=== PATIENT | female | born 1945 | race Caucasian/White ===

== ENCOUNTER 2019-02-26 11:53 | Emergency (ER) | payer MEDICARE, OTHER, SELFPAY ==
[2019-02-26] VITALS (8 sets, daily range): BP systolic 101–116; BP diastolic 44–59; PULSE 64–82; RESP 18–26; TEMP 37.1; O2SAT 54–99; BMI 19.5
--- NOTE | 2019-02-26 12:11 | ED_ITS ---
Entered by Jennifer Pham, acting as scribe for Sanket Petty MD, [facility]PI - SOB/Dyspnea General: Chief Complaint: Shortness of Breath/Dyspnea Stated Complaint: trouble breathing/cough Time Seen by Provider: 02/26/19 12:24 Source: patient and family Mode of arrival: ambulatory Limitations: no limitations History of Present Illness: HPI Narrative: 73 yo Female presents to ED with complaint of shortness of breath. Pt's daughter states that the patient started having shortness of breath yesterday. Pt's daughter states that the patient's oxygen saturations got down into the 70s yesterday so they increased her breathing treatments. Pt's daughter states that the patient got up to the 80's after the breathing treatments. Pt's daughter states that the patient had a right hip replacement on Friday. Pt's daughter states that the patient has also had a cough which she didn't have before the surgery. Per nurse, patient's oxygen was in the 50's on room air when she arrived to the ER. MD elicited complaint: shortness of breath and cough Pertinent past history: COPD Onset (ago): day(s) (yesterday) Context: other (recent surgery) Timing: constant Severity: severe Relieving factors: oxygen Known history of: COPD Associated symptoms: Reports cough; Deny fever(s) Treatment prior to arrival: none Related Data: Home oxygen amount: none Review of Systems General: Reports: 10 or more systems reviewed and unremarkable except in HPI and below Const: Denies: fever Resp: Reports: shortness of breath and non-productive cough PFSH ED PFSH: Statuses (acute, chronic, etc) shown below reflect problem list status as previously entered and may not be historically accurate Medical History (Updated 02/26/19 @ 17:19 by Sanket Petty MD, [facility] COPD (chronic obstructive pulmonary disease) (Acute) Surgical History (Updated 02/26/19 @ 17:19 by Sanket Petty MD, [facility] History of hip replacement (Acute) Social History (Updated 02/26/19 @ 12:22 by Jennifer Pham) Smoking and tobacco status: current every day smoker Physical Exam Const: COMMON NORMALS: average body habitus, oriented x3, no limitations, healthy appearing, alert and well nourished; apparent distress HENMT: COMMON NORMALS: normocephalic HEAD & SCALP: normocephalic Eye: COMMON NORMALS: PERRL, EOMs intact bilaterally, conjunctivae normal, no scleral icterus, no papilledema, normal visual dominguez by confrontation and fundi normal bilaterally CONJUNCTIVA: Yes conjunctivae normal PUPIL: Yes PERRL DIRECT OPHTHALMOSCOPY: Yes no papilledema and Yes fundi normal bilaterally Neck/C-Spine: COMMON NORMALS: full ROM, no lymphadenopathy, supple, no meningeal signs, no JVD, thyroid normal and no carotid bruits THYROID: thyroid normal Chest: COMMONS NORMALS: inspection of chest normal and palpation of chest normal Resp: COMMON NORMALS: no retractions and no use of accessory muscles; negative for clear to auscultation bilaterally AUSCULTATION: not clear to auscultation bilaterally and crackles (more in the left than the right) Laterality: bilateral Cardio: COMMON NORMALS: no JVD, regular rate, regular rhythm, S1 normal heart sound, S2 normal heart sound, no gallops, no clicks, no murmurs, no rub and peripheral pulses 2+ throughout RATE: regular rate RHYTHM: regular rhythm HEART SOUNDS: S1 normal and S2 normal PERIPHERAL PULSES: pulses 2+ throughout GI: COMMON NORMALS: normal to inspection, nondistended, normoactive bowel sounds, soft to palpation, non-tender, no hepatosplenomegaly, no masses and no bruits PALPATION: Yes soft and Yes no hepatosplenomegaly : COMMON NORMALS: Yes no CVA tenderness BLADDER/KIDNEY EXAM: Yes no CVA tenderness Back/Pelvis: COMMON NORMALS: no CVA tenderness Extremity: NARRATIVE EXTREMITY EXAM: warm and swollen 2+ edema on the right Neuro: COMMON NORMALS: oriented x3 SENSORIUM/ORIENTATION: Yes alert MENINGEAL SIGNS: Yes no meningeal signs Skin: COMMON NORMALS: no rashes or lesions noted, no wounds, skin turgor normal, no jaundice, no petechiae and no mottling GENERAL SKIN EXAM: no rashes or lesions noted and turgor normal Course Reevaluation(s): Time: 16:59 Reevaluation #2: Discussed her lab and imaging findings with her. She is currently on 2 L of oxygen via nasal cannula and she is saturating about 97%. Discussed that she has pulmonary embolism, elevated troponins with a delta at that is about 5. Because of all these she is advised to be admitted to the hospital for further evaluation. The patient is however adamantly declining any hospital admission. Her daughter is there and she is unable to convince the mother. The patient will not entertain any discussion that leads to keeping her in the hospital. I will therefore discharge her home on oral anticoagulation even though I strongly advised her to be in the hospital. The patient and her daughter are strongly counseled to return for any changes in her clinical condition or for any concerns. They voiced understanding. Vital Signs: Vital signs: Vital Signs Temperature 98.7 F 02/26/19 12:08 Pulse Rate 65 02/26/19 15:00 Respiratory Rate 25 H 02/26/19 12:52 Blood Pressure 111/59 02/26/19 15:00 Pulse Oximetry 96 02/26/19 15:00 MDM - SOB/Dyspnea MDM Narrative: Medical decision making narrative: 73-year-old female patient who recently had right hip surgery and presented today with severe shortness of breath and hypoxemia. Evaluation in the emergency department is consistent with pulmonary embolism. She also had elevated troponin and BNP. Attempts to admit the patient to the hospital were rejected by the patient. She is alert and oriented and fit to make her medical decision. Because she refused to be admitted we will discharge her home on oral anticoagulation and she is to follow-up with her primary care provider on Friday. Lab Data: Labs: Lab Results 02/26/19 02/26/19 02/26/19 Range/Units 12:19 12:19 12:19 WBC 6.9 (4.0-10.0) 10^3/ uL RBC 3.20 L (4.1-5.3) 10^6/u L Hgb 9.3 L (11.5-15.3) g/dL Hct 29.2 L (37.0-47.0) % MCV 91.3 (81-99) fL MCH 29.1 (28.0-34.0) pg MCHC 31.8 (30.0-36.0) g/dL RDW 14.6 (12.1-15.1) % Plt Count 284 (130-400) 10^3/c mm MPV 10.1 (7.4-10.4) fL Neut % (Auto) 75.6 % Lymph % (Auto) 10.5 % [place] % (Auto) 9.6 % Eos % (Auto) 3.2 % Baso % (Auto) 0.4 % Neut # (Auto) 5.2 (1.8-7.7) 10^3/u L Lymph # (Auto) 0.7 L (0.8-4.8) 10^3/u L [place] # (Auto) 0.7 (0.2-0.9) 10^3/u L Eos # (Auto) 0.2 (0.0-0.8) 10^3/u L Baso # (Auto) 0.0 (0.0-0.1) 10^3/u L Nucleated RBC % (a uto) 0.3 % Nucleated RBCs # 0.0 /100WBC PT (10.5-13.3) SECO NDS INR (0.8-1.2) Specimen Type Sample Site ABG pH (7.35-7.45) ABG pCO2 (35-45) mmHg ABG pO2 (80.0-100.0) mmH g ABG HCO3 (22-26) mmol/L ABG Base Excess (-2.0-2.0) mmol/ L Andrew Test Hematocrit (37-47) % Hgb O2 Saturation (95-100) % O2 Liters/Min % Ad Setter ID Sodium 133 L (136-145) mmol/L Potassium 4.3 (3.5-5.1) mmol/L Chloride 94 L (98-107) mmol/L Carbon Dioxide 28 (22-29) mmol/L Anion Gap 15.3 (5-19) BUN 12 (8-23) mg/dL Creatinine 0.7 (0.5-0.9) mg/dL Glucose 178 H (74-106) mg/dL Calcium 9.4 (8.8-10.2) mg/Dl Total Bilirubin 0.4 (0.15-1.2) mg/dL AST 20 (0-32) U/L ALT 18 (0-33) U/L Alkaline Phosphata se 77 (35-105) IU/L Troponin T Baselin e 49 H (0-10) ng/mL Troponin T 120 Min rosebud (0-10) ng/mL Delta Troponin T (0-10) ABS# NT-Pro-B Natriuret Pep 1863 H (0-125) pg/mL Total Protein 6.1 L (6.6-8.7) g/dL Albumin 3.8 (3.5-5.2) g/dL Globulin 2.3 (1.3-4.6) g/dL 02/26/19 02/26/19 02/26/19 Range/Units 12:19 13:19 14:26 WBC (4.0-10.0) 10^3/ uL RBC (4.1-5.3) 10^6/u L Hgb (11.5-15.3) g/dL Hct (37.0-47.0) % MCV (81-99) fL MCH (28.0-34.0) pg MCHC (30.0-36.0) g/dL RDW (12.1-15.1) % Plt Count (130-400) 10^3/c mm MPV (7.4-10.4) fL Neut % (Auto) % Lymph % (Auto) % [place] % (Auto) % Eos % (Auto) % Baso % (Auto) % Neut # (Auto) (1.8-7.7) 10^3/u L Lymph # (Auto) (0.8-4.8) 10^3/u L [place] # (Auto) (0.2-0.9) 10^3/u L Eos # (Auto) (0.0-0.8) 10^3/u L Baso # (Auto) (0.0-0.1) 10^3/u L Nucleated RBC % (a uto) % Nucleated RBCs # /100WBC PT 12.80 (10.5-13.3) SECO NDS INR 0.94 (0.8-1.2) Specimen Type Arterial Sample Site Radial, left ABG pH 7.38 (7.35-7.45) ABG pCO2 52.2 H (35-45) mmHg ABG pO2 78.2 L (80.0-100.0) mmH g ABG HCO3 31.1 H (22-26) mmol/L ABG Base Excess 5.3 H (-2.0-2.0) mmol/ L Andrew Test Pos Hematocrit 26.2 L (37-47) % Hgb O2 Saturation 92.5 L (95-100) % O2 Liters/Min 3.0 % Ad Setter ID monro Sodium (136-145) mmol/L Potassium (3.5-5.1) mmol/L Chloride (98-107) mmol/L Carbon Dioxide (22-29) mmol/L Anion Gap (5-19) BUN (8-23) mg/dL Creatinine (0.5-0.9) mg/dL Glucose (74-106) mg/dL Calcium (8.8-10.2) mg/Dl Total Bilirubin (0.15-1.2) mg/dL AST (0-32) U/L ALT (0-33) U/L Alkaline Phosphata se (35-105) IU/L Troponin T Baselin e (0-10) ng/mL Troponin T 120 Min rosebud 43.82 H (0-10) ng/mL Delta Troponin T -5.18 L (0-10) ABS# NT-Pro-B Natriuret Pep (0-125) pg/mL Total Protein (6.6-8.7) g/dL Albumin (3.5-5.2) g/dL Globulin (1.3-4.6) g/dL Imaging Data^: CTA Chest: Radiologist's impression: [place] [address] CT Scan Report Signed Patient: Beverley Gonzales LMR#: [id number] : 7Acct:[id number] Age/Sex: 73 / FADM Date: 02/26/19 Loc: ER Attending Dr: Ordering Physician: Sanket Petty [place], [facility] [place] of Service: 02/26/19 Procedure(s): CT angio chest PE protcl [id number] Accession Number(s): [id number] Report Number: [id number] WS: [id number] CTA scan of the chest with IV contrast. Additional two-dimensional coronal and sagittal reconstruction and MIP images was performed. 02/26/2019 Clinical Data: severe hypoxia. Shortness of breath. recent hip replacement Comparison: None. DLP: 564.[address] scans at [facility] use at least one of these dose optimization techniques: automated exposure control; mA and/or kV adjustment per patient size (includes targeted exams where dose is matched to clinical indication); or iterative reconstruction. Findings: The central pulmonary arteries fill normally with no evidence of intermittent luminal filling defects. The small basilar lower lobe arteries show small intraluminal filling defects which are consistent with minimal pulmonary embolic disease. No nodules or masses are seen. There are small bilateral pleural effusions with more on the left than the right. The heart size is normal with no pericardial effusion. The pulmonary arterial system and thoracic aorta demonstrate no abnormalities or dilatations. There is no axillary or significant mediastinal adenopathy. The thyroid gland shows normal enhancement. The trachea bifurcates into the bronchi. The upper abdomen shows no abnormalities. The visualized liver, spleen, pancreas, adrenal glands and superior poles of the kidneys are not remarkable. There are clips in gallbladder fossa from a cholecystectomy. The vertebral bodies of the thoracic and upper lumbar spine show moderate osteoarthritic spurring.. CT/CT angio chest PE protcl [id number] Impression: 1. Small intraluminal filling defects of the peripheral lower lobe arteries consistent with minimal pulmonary embolic disease. 2. Small bilateral pleural effusions with more on the left than the right. 3. The emergency room was contacted at 1420 hours. Dictated By:Monie Regalado MD Signed By:Monie Regalado MDSigned Date/Time:02/26/19 1419 DD/ 1408 EKG Data^: EKG 1: Attestation: I personally reviewed and interpreted this EKG as follows: EKG Interpretation Date: 02/26/19 EKG interpretation time: 12:54 Prior EKG tracings: not available for review Interpretation: Normal sinus rhythm. Heart rate 69. Normal NM intervals No ST changes EKG 2: Interpretation: [address] [address] Electrocardiograph Report Signed Patient: Beverley Gonzales LMR#: [id number] : 7Acct:[id number] Age/Sex: 73 / FADM Date: 02/26/19 Loc: ER Attending Dr: Ordering Physician: Sanket Petty [place], [facility] [place] of Service: 02/26/19 Procedure(s): ECG 12 lead EKG Accession Number(s): [id number] Report Number: [id number] Measurements Intervals [place] Rate: 63 P: 60 NM: 162 QRS: 57 QRSD: 90 T: 66 QT: 389 QTc: 401 SINUS RHYTHM No previous ECG available for comparison Electronically Signed On 02-26-2019 15:08:56 BED WORKER by Edwige Adams M.D. [email or web address] Dictated By:Edwige Adams MD Signed By:Edwige Adamsigned Date/Time:02/26/19 1509 Discharge Plan Discharge Patient Disposition: Home, Self-Care Clinical Impression: Pleural effusion Pulmonary embolism Qualifiers: Pulmonary embolism type: unspecified Chronicity: acute Acute cor pulmonale presence: unspecified Qualified Code(s): I26.99 - Other pulmonary embolism without acute cor pulmonale History of hip replacement Qualifiers: Laterality: right Qualified Code(s): Z96.641 - Presence of right artificial hip joint Condition: Serious Prescriptions: New apixaban 5 mg tablet See Rx Instructions .ROUTE .COMPLEX Qty: 60 RF: 0 Continued gabapentin 600 mg Tablet 600 mg PO BEDTIME RF: 0 ipratropium-albuterol 0.5 mg-3 mg(2.5 mg base)/3 mL Solution For Nebulization 3 ml INHALATION Q6H PRN (Reason: Shortness Of Breath) RF: 0 tizanidine 4 mg Tablet 4 mg PO DAILY RF: 0 Celexa 10 mg Tablet 10 mg PO BEDTIME RF: 0 clonazepam 0.5 mg Tablet 0.5 mg PO BID RF: 0 [place] 10-325 mg Tablet See Rx Instructions .ROUTE .COMPLEX RF: 0 prednisolone acetate 1 % Drops,Suspension 1 drp ophthalmic (eye) BID RF: 0 Vitamin C 500 mg Tablet 500 mg PO DAILY RF: 0 levothyroxine 50 mcg Tablet 50 mcg PO DAILY RF: 0 gabapentin 300 mg Capsule 300 mg PO DAILY RF: 0 Flonase Allergy Relief 50 mcg/actuation [place],Suspension 1 spray INTRANASAL BID RF: 0 Calcium 600 with Vitamin D3 600 mg(1,500mg) -500 unit Capsule 1 cap PO DAILY RF: 0 Advair Diskus 1 puff PO DAILY RF: 0 Discontinued Aspir-81 81 mg Tablet,Delayed Release (Dr/Ec) 81 mg PO BID RF: 0 Discharge Orders: Discharge Order (Routine); Ordered 02/26/19 Ordered By: Sanket Petty Referrals: Sebastian Archer DO [Family Provider] - 03/01/19 (For an order for oxygen.) Discharge Diet: Usual diet Discharge Activity: Resume usual activity Activity Restrictions/Additional Instructions: Return for any new or worsening symptoms. Follow-up with your primary care provider on Friday for a prescription for oxygen and for further evaluation. Take any blood thinners as prescribed. Stop aspirin while you take any blood thinners. Coding Level of Care Code ED Chemistry Quality Control Analyst for Chg Fwd Exam Problem Focused The documentation recorded by the Vero schaeffer Carmen, accurately reflects the service I personally performed and the decisions made by , Sanket Petty MD, [facility] Feb 26, 2019 11:53
--- NOTE | 2019-02-26 12:31 | CT_ITS ---
WS: [id number] CTA scan of the chest with IV contrast. Additional two-dimensional coronal and sagittal reconstructio n and MIP images was performed. 02/26/2019 Clinical Data: severe hypoxia. Shortness of breath. recent hip replacement Comparison: None. DLP: 564.[address] scans at [facility] use at least one of these dose optimization techniques: automat ed exposure control; mA and/or kV adjustment per patient size (includes targeted exams where dose is matched to clinical indication); or iterative reconstruction. Findings: The central pulmonary arteries fill normally with no evidence of intermittent luminal filling defects . The small basilar lower lobe arteries show small intraluminal filling defects which are consistent with minimal pulmonary embolic disease. No nodules or masses are seen. There are small bilateral pleural effusions with more on the left than the right. The heart size is normal with no pericardial effusion. The pulmonary arterial system and thoracic aorta demonstrate no abnormalities or dilatations. There is no axillary or significant media stinal adenopathy. The thyroid gland shows normal enhancement. The trachea bifurcates into the bronch i. The upper abdomen shows no abnormalities. The visualized liver, spleen, pancreas, adrenal glands and superior poles of the kidneys are not remarkable. There are clips in gallbladder fossa from a cholec ystectomy. The vertebral bodies of the thoracic and upper lumbar spine show moderate osteoarthritic spurring.. CT/CT angio chest PE protcl [id number] Impression: 1. Small intraluminal filling defects of the peripheral lower lobe arteries con sistent with minimal pulmonary embolic disease. 2. Small bilateral pleural effusions with more on the left than the right. 3. The emergency room was contacted at 1420 hours.
--- NOTE | 2019-02-26 12:33 | ECG_ITS ---
Measurements Intervals [place] Rate: 69 P: 70 [place]: 162 QRS: 58 QRSD: 98 T: 61 QT: 401 QTc: 431 SINUS RHYTHM No previous ECG available for comparison Electronically Signed On 02-26-2019 15:07:48 PARTY PLAN DEMONSTRATOR by Edwige Adams M.D. [id number]
[2019-02-26 12:43] LABS: Basophils % 0.4 %; Eosinophils # 0.2 10^3/uL (0.0-0.8); Eosinophils % 3.2 %; Hematocrit 29.2 % (37.0-47.0); Hemoglobin 9.3 g/dL (11.5-15.3); Lymphocytes # 0.7 10^3/uL (0.8-4.8); Lymphocytes % 10.5 %; Mean Corpuscular HGB Conc 31.8 g/dL (30.0-36.0); Mean Corpuscular Hemoglobin 29.1 pg (28.0-34.0); Mean Corpuscular Volume 91.3 fL (81-99); Mean Platelet Volume 10.1 fL (7.4-10.4); Monocytes # 0.7 10^3/uL (0.2-0.9); Monocytes % 9.6 %; Neutrophils # 5.2 10^3/uL (1.8-7.7); Neutrophils % 75.6 %; Nucleated Red Blood Cells % 0.3 %; Platelet Count 284 10^3/cmm (130-400); Red Cell Distribution Width 14.6 % (12.1-15.1); White Blood Count 6.9 10^3/uL (4.0-10.0)
[2019-02-26 12:57] LABS: Troponin(5th) Baseline 49 ng/mL (0-10)
[2019-02-26 13:33] LABS: ABG PCO2 52.2 mmHg (35-45); ABG PH Result 7.38 (7.35-7.45); Arterial Blood Gas Hematocrit 26.2 % (37-47); Base Excess ABG 5.3 mmol/L (-2.0-2.0); Blood Gas Allen Test Pos; Blood Gas Sample Site Radial, left; Blood Gas Sample Type Arterial; HCO3 ABG 31.1 mmol/L (22-26); HGB O2 Sat 92.5 % (95-100); PO2 ABG 78.2 mmHg (80.0-100.0)
[2019-02-26] MEDS: sodium chloride 0.9% 1,000 ML 999 ML IV (13:47)
--- NOTE | 2019-02-26 13:58 | PC.NURSE ---
PT OFF UNIT TO CT SCAN BY STRETCHER WITH TECH
[2019-02-26 14:12] LABS: Alanine Aminotransferase 18 U/L (0-33); Albumin Level 3.8 g/dL (3.5-5.2); Alkaline Phosphatase 77 IU/L (35-105); Anion Gap 15.3 (5-19); Aspartate Amino Transferase 20 U/L (0-32); Blood Urea Nitrogen 12 mg/dL (8-23); Calcium 9.4 mg/Dl (8.8-10.2); Carbon Dioxide 28 mmol/L (22-29); Chloride 94 mmol/L (98-107); Globulin 2.3 g/dL (1.3-4.6); Glucose 178 mg/dL (74-106); NT Pro B Type Natriuretic Pept 1863 pg/mL (0-125); Potassium 4.3 mmol/L (3.5-5.1); Sodium 133 mmol/L (136-145); Total Bilirubin 0.4 mg/dL (0.15-1.2); Total Protein 6.1 g/dL (6.6-8.7)
[2019-02-26 14:50] LABS: INR 0.94 (0.8-1.2)
[2019-02-26 15:02] LABS: Troponin 5 2HR 43.82 ng/mL (0-10)
[2019-02-26] MEDS: enoxaparin 60 mg/0.6 mL Syringe SUBCUT (15:07)
[2019-02-26 15:08] LABS: Troponin 5 2HR Delta -5.18 ABS# (0-10)
[2019-02-26] MEDS: HYDROcodone-acetaminophen 10-325 mg Tablet 1 TAB PO (16:30)
--- NOTE | 2019-02-26 17:52 | PC.NURSE ---
nurse spoke with pt's family and asked if family wanted to go home to get oxygen so pt could be on oxygen during transport home. pt states, i don't even know where all the parts are . ed physician notified. pt and family agreed to wait for home o2 delivery before leaving
--- NOTE | 2019-02-26 18:30 | PC.NURSE ---
home o2 supplier in room with pt and pt's family
--- NOTE | 2019-02-26 18:33 | ECG_ITS ---
Measurements Intervals [place] Rate: 63 P: 60 VT: 162 QRS: 57 QRSD: 90 T: 66 QT: 389 QTc: 401 SINUS RHYTHM No previous ECG available for comparison Electronically Signed On 02-26-2019 15:08:56 DRUG SAFETY SCIENTIST by Edwige Adams M.D. [email or web address]
[2019-03-03 08:27] LABS: Oxygen Device NC
[2019-03-03 09:47] LABS: Carboxyhemoglobin 3.1 %THgb (0.4-20.1); Methemoglobin 0.8 % (0.4-1.5); Total Hemoglobin 8.5 g/dL (12-16)
== END 2019-02-26 19:00 | disposition home or self-care (01) ==
PROVIDERS: Emergency Provider Family Medicine; Family Provider Electrodiagnostic Medicine
DX: I26.99 Other pulmonary embolism without acute cor pulmonale (principal); J90 Pleural effusion, not elsewhere classified; Z96.641 Presence of right artificial hip joint; F17.210 Nicotine dependence, cigarettes, uncomplicated; J44.9 Chronic obstructive pulmonary disease, unspecified
CPT/HCPCS: 36415; 36600; 71275; 80053; 82805; 83880; 84484; 85025; 85610; 93005; 96360; 96372; 99282; J1650; J7030; Q9967

== ENCOUNTER 2020-08-11 14:15 | Outpatient (CLI) | payer MEDICARE, SELFPAY ==
--- NOTE | 2020-08-11 14:27 | USCV_ITS ---
Beverley Gonzales Age: 75 Gender: F : 1945 Exam Date: 08/11/2020 14:14 Ordering Phys: Sebastian Archer DO Technologist: Coby Faith Exam Location: [facility] [place] Indication: RT FOOT COLDER THAN LT. RIGHT LEFT Brachial 150.00 mmHg Brachial 150.00 mmHg Pressure (mmHg) Waveform Pressure (mmHg) Waveform 179.00 MANAGER SOCIAL MEDIA 176.00 174.00 DPA 167.00 1.16 Ankle/Brachial Index 1.17 115.00 Pre-Exercise Toe Pressure 109.00 0.77 Pre-Exercise Toe/Brachial Index 0.73 FINDINGS Normal resting ABIs bilaterally Normal resting TBIs bilaterally CONCLUSIONS No evidence of any significant arterial obstruction, based on the above findings. Dr Shad Soriano MD [facility] (Electronically Signed) Final Date: 12 August 2020 13:05 S
== END 2020-08-11 14:16 | disposition home or self-care (01) ==
LOC: RAD 14:21
PROVIDERS: PCP Electrodiagnostic Medicine; Visit Provider Electrodiagnostic Medicine
DX: I73.9 Peripheral vascular disease, unspecified (principal)
CPT/HCPCS: 93922

== ENCOUNTER 2021-04-09 16:08 | Outpatient (CLI) | payer MEDICARE, SELFPAY ==
--- NOTE | 2021-04-09 16:19 | XRR_ITS ---
PROCEDURE INFORMATION: Exam: XR Abdomen Exam date and time: 04/09/2021 4:19 PM Age: 75 years old Clinical indication: Other: Diarrhea; Abdominal pain; Generalized; Additional info: Diarrhea, abd. Pain TECHNIQUE: Imaging protocol: XR of the abdomen. Views: Frontal supine view of the abdomen. 1 View. COMPARISON: CR Chest 2 views* [id number] 08/19/2018 10:51 AM FINDINGS: Gastrointestinal tract: Normal. No bowel dilation. Bones/joints: Sequela of posterior spinal fusion device at L4-L5 with intervertebral disc spacer. Bilateral total hip arthroplasties noted. XR/XR abdomen 1V* [id number] IMPRESSION: No acute findings.
== END 2021-04-09 16:09 | disposition home or self-care (01) ==
PROVIDERS: PCP Electrodiagnostic Medicine; Visit Provider Electrodiagnostic Medicine
DX: R19.7 Diarrhea, unspecified (principal); R10.84 Generalized abdominal pain
CPT/HCPCS: 74018

== ENCOUNTER 2021-05-08 14:38 | Outpatient (CLI) | payer MEDICARE, SELFPAY ==
--- NOTE | 2021-05-08 14:44 | XRR_ITS ---
PROCEDURE INFORMATION: Exam: XR Chest Exam date and time: 05/08/2021 2:44 PM Age: 75 years old Clinical indication: Pain and injury or trauma; Fall; Blunt trauma (contusions or hematomas); Left-sided; Injury details: PT fell 4 days ago, left side hurts, mid to lower; Prior surgery; Surgery type: L spine; Additional info: Rib pain left side TECHNIQUE: Imaging protocol: XR of the chest. Views: 2 views. COMPARISON: CR Chest 2 views* [id number] 08/19/2018 10:51 AM FINDINGS: Lungs: Hyperinflated lungs. No consolidation. Pleural spaces: No pleural effusion. No pneumothorax. Heart/Mediastinum: No cardiomegaly. Bones/joints: Visualized osseous structures are intact. XR/XR chest 2V* [id number] IMPRESSION: No acute findings.
== END 2021-05-08 14:39 | disposition home or self-care (01) ==
LOC: RAD 14:40
PROVIDERS: PCP Clinical Nurse Specialist Adult Health; Visit Provider Clinical Nurse Specialist Adult Health
DX: R07.81 Pleurodynia (principal)
CPT/HCPCS: 71046

== ENCOUNTER → 2023-12-05 11:42 | Outpatient (BNVA) | payer MEDICARE, SELFPAY | PROVIDERS: Visit Provider Specialist | DX: S42.031A Displaced fracture of lateral end of right clavicle, initial encounter for closed fracture (principal); W19.XXXA Unspecified fall, initial encounter | CPT/HCPCS: 23500; 73030; 99203 ==

== ENCOUNTER 2024-08-03 22:27 | Emergency (ER) | payer MEDICARE, SELFPAY ==
[2024-08-03 22:27] VITALS: BP 169/78; PULSE 89; RESP 24; TEMP 36.6; O2SAT 96; BMI 19.0
--- NOTE | 2024-08-03 22:43 | ECG_ITS ---
[employer] System Test Date: 2024-08-03 Pat Name: Beverley Gonzales Department: Room: Gender: Female Tool Smith: : 1945 Requested By: Ganesh Ac Order Number: [id number] Kaplan MD: Shad Soriano M.D. Measurements Intervals [place] Rate: 70 P: 83 IA: 169 QRS: 81 QRSD: 89 T: 83 QT: 403 QTc: 438 Interpretive Statements SINUS RHYTHM SEPTAL MYOCARDIAL INFARCTION , OF INDETERMINATE AGE [40+ ms Q WAVE IN V1/V2] Compared to ECG 02/26/2019 14:51:17 Myocardial infarct finding now present Electronically Signed On 08-04-2024 21:46:48 CDT by Shad Soriano M.D. [email or web address] [id number]
--- NOTE | 2024-08-03 22:43 | CTR_ITS ---
PROCEDURE INFORMATION: Exam: CTA Chest With Contrast Exam date and time: 08/03/2024 11:21 PM Age: 78 years old Clinical indication: Shortness of breath; Additional info: Shortness of breath, HX of pe TECHNIQUE: Imaging protocol: Computed tomographic angiography of the chest with contrast. Exam focused on the arteries. 3D rendering (Not supervised by radiologist): MIP and/or 3D reconstructed images were created by the technologist. Radiation optimization: All CT scans at this facility use at least one of these dose optimization techniques: automated exposure control; mA and/or kV adjustment per patient size (includes targeted exams where dose is matched to clinical indication); or iterative reconstruction. Contrast material: OMNI 350; Contrast volume: 64 ml; Contrast route: INTRAVENOUS (IV); COMPARISON: CT angio chest PE protcl [id number] 02/26/2019 2:01 PM RADIATION DOSE METRICS: Total DLP (mGy-cm): 166.1 FINDINGS: Pulmonary arteries: Normal. No pulmonary emboli. Aorta: Unremarkable. No aortic aneurysm. No aortic dissection. 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 Lungs: Emphysematous changes. Biapical pleuroparenchymal fibrosis. Pleural spaces: Unremarkable. No pneumothorax. No pleural effusion. Heart: Unremarkable. No cardiomegaly. No pericardial effusion. Lymph nodes: Unremarkable. No enlarged lymph nodes. Gallbladder and biliary ducts: Cholecystectomy. Bones/joints: Unremarkable. No acute fracture. Soft tissues: Unremarkable. CT/CT angio chest PE protcl [id number] IMPRESSION: 1. Negative for pulmonary embolus. 2. Emphysematous changes. 3. Biapical pleuroparenchymal fibrosis. 4. 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 5. Cholecystectomy. COMMENTS: The presence of pulmonary emphysema on CT is an independent risk factor for lung cancer. In the absence of a history or active diagnosis of lung cancer, it is recommended that this patient with emphysema be evaluated for enrollment in a low dose CT lung cancer screening program.
[2024-08-03] MEDS: methylPREDNISolone sod succ 125 mg/2 mL INJ IV (22:48)
[2024-08-03 22:50] LABS: Basophils # 0.1 10^3/uL (0.0-0.1); Basophils % 0.5 %; Eosinophils # 0.1 10^3/uL (0.0-0.8); Eosinophils % 1.2 %; Hematocrit 34.5 % (36-47); Lymphocytes # 1.2 10^3/uL (0.8-4.8); Lymphocytes % 10.8 %; Mean Corpuscular HGB Conc 31.6 g/dL (30-55); Mean Corpuscular Hemoglobin 29.1 pg (27-33); Mean Platelet Volume 9.9 fL (7.4-10.4); Monocytes % 9.3 %; Neutrophils # 8.34 10^3/uL (1.8-7.7); Neutrophils % 77.8 %; Nucleated Red Blood Cells % 0 %; Platelet Count 256 10^3/cmm (157-399); Red Blood Count 3.75 10^6/uL (3.85-5.65); Red Cell Distribution Width 13.8 % (12.1-15.1); White Blood Count 10.72 10^3/uL (3.29-11.43)
[2024-08-03 22:56] VITALS: PULSE 73; RESP 18; O2SAT 97
[2024-08-03] MEDS: ipratropium-albuterol 3 mL Neb 6 ML INHALATION (22:56)
--- NOTE | 2024-08-03 22:57 | W.ED.SOB ---
HPI - SOB/Dyspnea General: Chief Complaint: Shortness of Breath/Dyspnea Stated Complaint: SOB Time Seen by Provider: 08/03/24 22:30 History of Present Illness: HPI Narrative: Patient with a history of COPD and prior pulmonary embolism presents with worsening shortness of breath. The patient reports that today?s episode is much worse than previous ones, describing a sensation of tightness in the chest and significant weakness. The patient was unable to get up from a chair during the episode and felt trembling and sweating, but denies fever or cough. The patient has been using home oxygen at 2 L/min, increased to 2.5 L/min during this episode, and has had two nebulizer treatments today. The patient notes a recent loss of voice, red nose, and loss of skin on the hand. There is no history of congestive heart failure, but the patient?s heart has been described as ?not good.? The patient has not been taking blood thinners. The patient?s ability to ambulate has significantly declined compared to several months ago, now unable to walk around the house. This is reportedly the fourth severe episode. No recent history of flu-like symptoms. The patient?s daughter and caregiver are present and report ongoing weakness and increased oxygen requirements. Related Data Home Medications ?Medication ?Instructions ?Recorded ?Confirmed Advair Diskus 1 puff PO DAILY 02/26/19 12/05/23 ascorbic acid (vitamin C) 500 mg 500 mg PO DAILY 02/26/19 12/05/23 tablet (Vitamin C) calcium 600 mg (as 1 cap PO DAILY 02/26/19 12/05/23 carbonate)-vitamin D3 12.5 mcg (500 unit) capsule (Calcium with Vit D3) citalopram 10 mg tablet (Celexa) 10 mg PO BEDTIME 02/26/19 12/05/23 clonazepam 0.5 mg tablet 0.5 mg PO BID 02/26/19 12/05/23 fluticasone propionate 50 1 spray intranasal BID 02/26/19 12/05/23 mcg/actuation nasal spray,suspension (Flonase Allergy Relief) gabapentin 300 mg capsule 300 mg PO DAILY 02/26/19 12/05/23 gabapentin 600 mg tablet 600 mg PO BEDTIME 02/26/19 12/05/23 hydrocodone 10 mg-acetaminophen See Rx Instructions .Route .COMPLEX 02/26/19 12/05/23 325 mg tablet ([place]) ipratropium 0.5 mg-albuterol 3 mg 3 ml inhalation Q6H PRN Shortness 02/26/19 12/05/23 (2.5 mg base)/3 mL nebulization Of Breath soln levothyroxine 50 mcg tablet 50 mcg PO DAILY 02/26/19 12/05/23 prednisolone acetate 1 % eye 1 drp ophthalmic (eye) BID 02/26/19 12/05/23 drops,suspension tizanidine 4 mg tablet 4 mg PO DAILY 02/26/19 12/05/23 Previous Rx's ?Medication ?Instructions ?Recorded apixaban 5 mg tablet See Rx Instructions PO .COMPLEX 02/26/19 #60 tabs Allergies Allergy/AdvReac Type Severity Reaction Status Date / Time codeine Allergy ADR-Nausea Verified 12/05/23 11:29 Penicillins Allergy ALGY-Bliste Verified 12/05/23 11:29 r PFSH ED PFSH: Medical History COPD (chronic obstructive pulmonary disease) Surgical History History of hip replacement Social History Smoking and tobacco/nicotine status: current some day tobacco/nicotine user Physical Exam Const: COMMON NORMALS: no acute distress, patient oriented x3 and alert HENMT: COMMON NORMALS: normocephalic and atraumatic HEAD & SCALP: normocephalic and atraumatic Eye: COMMON NORMALS: Equal, round and reactive pupils present, EOMs intact bilaterally and no scleral icterus PUPIL: Yes Equal, round and reactive pupils present Resp: OTHER: Mild tachypnea, taking deep breaths, somewhat prolonged expiratory phase, minimal wheezes in all lung dominguez. Chest tightness is somewhat worse with deep inspiration. Cardio: COMMON NORMALS: regular rate, regular rhythm and No murmurs present (Cardio) RATE: regular rate RHYTHM: regular rhythm GI: COMMON NORMALS: Normal to inspection, nondistended, normoactive bowel sounds present, Soft to palpation and non-tender PALPATION: Yes Soft to palpation Extremity: OTHER: No edema on the legs. No unilateral swelling or redness to imply DVT. Neuro: COMMON NORMALS: patient oriented x3 SENSORIUM/ORIENTATION: Yes alert Skin: COMMON NORMALS: no rashes or lesions noted GENERAL SKIN EXAM: no rashes or lesions noted Course Vital Signs: Vital signs: Vital Signs Temperature 97.9 F 08/03/24 22:27 Pulse Rate 71 08/04/24 02:08 Respiratory Rate 20 H 08/04/24 02:08 Blood Pressure 128/81 08/04/24 02:08 Pulse Oximetry 96 08/04/24 02:08 Oxygen Delivery Me thod Nasal Cannula 08/04/24 01:08 Oxygen Flow Rate 2 08/03/24 23:56 MDM - SOB/Dyspnea Medical Decision Making In summary, patient is a 78-year-old female from home who complains of escalating shortness of breath and general weakness prompting visit to the emergency department tonight. In the past she has had COPD exacerbations and pleural effusions and PEs. Fortunately, CT of the chest does not show evidence of PE or pneumonia or pneumothorax or pleural effusion. There are some emphysematous changes, but nothing acute. Lungs are mostly clear and after several breathing treatments I cannot auscultate any wheezes. She was given Solu-Medrol as well. There is no fever or other vital sign abnormality and she is saturating 97% on her normal 2 L nasal cannula. As such, I do not feel she would benefit from hospitalization. She would like to go home and I think this is reasonable. She knows that she is always welcome back in the emergency department if symptoms get worse before outpatient follow-up Lab Data 08/03/24 22:39 08/03/24 22:39 Labs/Radiology: Radiology Impressions Chest CTA 08/03/24 22:43 IMPRESSION: 1. Negative for pulmonary embolus. 2. Emphysematous changes. 3. Biapical pleuroparenchymal fibrosis. 4. 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 5. Cholecystectomy. COMMENTS: The presence of pulmonary emphysema on CT is an independent risk factor for lung cancer. In the absence of a history or active diagnosis of lung cancer, it is recommended that this patient with emphysema be evaluated for enrollment in a low dose CT lung cancer screening program. Laboratory Results WBC 10.72 10^3/uL (3.29-11.43) 08/03/24 22:39 RBC 3.75 10^6/uL (3.85-5.65) L 08/03/24 22: Hgb 10.90 g/dL (11.27-16.99) L 08/03/24: Hct 34.5 % (36-47) L 08/03/24: MCV 92.0 fl (85-98) 08/03/24: MCH 29.1 pg (27-33) 08/03/24: MCHC 31.6 g/dL (30-55) 08/03/24: RDW 13.8 % (12.1-15.1) 08/03/24: Plt Count 256 10^3/cmm (157-399) 08/03/24: MPV 9.9 fL (7.4-10.4) 08/03/24: Neut % (Auto) 77.8 % 08/03/24: Lymph % (Auto) 10.8 % 08/03/24: [place] % (Auto) 9.3 % 08/03/24: Eos % (Auto) 1.2 % 08/03/24: Baso % (Auto) 0.5 % 08/03/24: Neut # (Auto) 8.34 10^3/uL (1.8-7.7) H 08/03/24: Lymph # (Auto) 1.2 10^3/uL (0.8-4.8) 08/03/24: [place] # (Auto) 1.0 10^3/uL (0.2-0.9) H 08/03/24: Eos # (Auto) 0.1 10^3/uL (0.0-0.8) 08/03/24: Baso # (Auto) 0.1 10^3/uL (0.0-0.1) 08/03/24: Nucleated RBC % (auto) 0 % 08/03/24: Nucleated RBCs # 0.0 /100WBC 08/03/24: PT 11.70 SECONDS (12.1-14.9) L 08/03/24: INR 0.80 (0.8-1.2) 06/10/25 22:39 Specimen Type Arterial 08/03/24 22:56 Sample Site Brachial, right 08/03/24 22:56 ABG pH 7.43 (7.35-7.45) 08/03/24 22:56 ABG pCO2 41.8 mmHg (35-45) 08/03/24 22:56 ABG pO2 64.3 mmHg (80.0-100.0) L 08/03/24 22:56 ABG HCO3 27.9 mmol/L (22-26) H 08/03/24 22:56 ABG Base Excess 3.2 mmol/L (-2.0-2.0) H 08/03/24 22:56 Andrew Test N/a 08/03/24 22:56 Hematocrit 34.5 % (37-47) L 08/03/24 22:56 Hgb O2 Saturation 91.3 % (95-100) L 08/03/24 22:56 Carboxyhemoglobin 1.1 %THgb (0.4-20.1) 08/03/24 22:56 Methemoglobin 0.9 % (0.4-1.5) 08/03/24 22:56 Total Hemoglobin 11.3 g/dL (12-16) L 08/03/24 22:56 O2 Delivery Device Nc 08/03/24 22:56 O2 Liters/Min 2.0 % 08/03/24 22:56 Nylon Winder ID [email or web address] 08/03/24 22:56 Sodium 138 mmol/L (136-145) 08/03/24 22:39 Potassium 4.3 mmol/L (3.5-5.1) 08/03/24 22:39 Chloride 99 mmol/L (98-107) 08/03/24 22:39 Carbon Dioxide 29 mmol/L (22-29) 08/03/24 22:39 Anion Gap 14.3 (5-19) 08/03/24 22:39 BUN 25 mg/dL (8-23) H 08/03/24 22:39 Creatinine 1.3 mg/dL (0.5-0.9) H 08/03/24 22:39 GFR Calculation Not Reportable 08/03/24 22:39 Glucose 98 mg/dL (65-115) 08/03/24 22:39 Calculated Osmolality 290 mOsm/kg (285-295) 08/03/24 22:39 Calcium 9.2 mg/dL (8.5-10.5) 08/03/24 22:39 Total Bilirubin 0.2 mg/dL (0.15-1.2) 08/03/24 22:39 AST 53 U/L (0-32) H 08/03/24 22:39 ALT 44 U/L (0-33) H 08/03/24 22:39 Alkaline Phosphatase 88 U/L (35-105) 08/03/24 22:39 Troponin T Baseline 23 ng/L (0-10) H 08/03/24 22:39 Troponin T 120 Minute 32.77 ng/L (0-10) H 08/04/24 00:16 Delta Troponin T 9.77 ABS# (0-10) 08/04/24 00:16 NT-Pro-B Natriuret Pep 568 pg/mL (0-450) H 08/03/24 22:39 Total Protein 7.1 g/dL (6.6-8.7) 08/03/24 22:39 Albumin 4.1 g/dL (3.5-5.2) 08/03/24 22:39 Globulin 3.0 g/dL (1.3-4.6) 08/03/24 22:39 All radiology interpretation(s) finalized by discharge EKG Data EKG 1: Interpretation: Time?2251?sinus rhythm, rate of 70, no ST segment elevation or depression, no T wave inversions, intervals within normal limits. QTc = 425 Discharge Plan Discharge Patient Disposition: Home Clinical Impression: Breath shortness Condition: Stable Prescriptions: No Action gabapentin 600 mg Tablet 600 mg PO BEDTIME ipratropium-albuterol 0.5 mg-3 mg(2.5 mg base)/3 mL Solution For Nebulization 3 ml INHALATION Q6H PRN (Reason: Shortness Of Breath) tizanidine 4 mg Tablet 4 mg PO DAILY Rx Instructions: pt states that she thinks she takes this once a day Celexa 10 mg Tablet 10 mg PO BEDTIME clonazepam 0.5 mg Tablet 0.5 mg PO BID [place] 10-325 mg Tablet See Rx Instructions .ROUTE .COMPLEX Rx Instructions: 1 - 2 tab orally q4-6h prn prednisolone acetate 1 % Drops,Suspension 1 drp ophthalmic (eye) BID Vitamin C 500 mg Tablet 500 mg PO DAILY levothyroxine 50 mcg Tablet 50 mcg PO DAILY gabapentin 300 mg Capsule 300 mg PO DAILY Flonase Allergy Relief 50 mcg/actuation [place],Suspension 1 spray INTRANASAL BID Calcium 600 with Vitamin D3 600 mg(1,500mg) -500 unit Capsule 1 cap PO DAILY Advair Diskus 1 puff PO DAILY Rx Instructions: PT UNSURE OF STRENGTH-TRYING TO GET FROM MAIL ORDER apixaban 5 mg tablet See Rx Instructions .ROUTE .COMPLEX Qty: 60 0RF Rx Instructions: take 10 mg by mouth twice daily for 7 days; then 5 mg twice daily Discharge Orders: Discharge ED (Routine); Ordered 08/04/24 Ordered By: Ganesh De La Torre Referrals: Sebastian Archer DO [Primary Care Provider, Family Practice] Discharge Diet: Advance as tolerated Discharge Activity: Increase activity as tolerated Patient Instructions: COPD Print Language: Lao Coding Level of Care Code ED Proposal Engineer for Alpa Rudolph
[2024-08-03 23:03] VITALS: PULSE 81
[2024-08-03 23:03] LABS: Troponin(5th) Baseline 23 ng/L (0-10)
[2024-08-03 23:06] LABS: ABG PCO2 41.8 mmHg (35-45); ABG PH Result 7.43 (7.35-7.45); Arterial Blood Gas Hematocrit 34.5 % (37-47); Base Excess ABG 3.2 mmol/L (-2.0-2.0); Blood Gas Sample Site Brachial, right; Blood Gas Sample Type Arterial; Carboxyhemoglobin 1.1 %THgb (0.4-20.1); HCO3 ABG 27.9 mmol/L (22-26); HGB O2 Sat 91.3 % (95-100); Methemoglobin 0.9 % (0.4-1.5); Oxygen Device NC; PO2 ABG 64.3 mmHg (80.0-100.0); Total Hemoglobin 11.3 g/dL (12-16)
[2024-08-03 23:11] LABS: Alanine Aminotransferase 44 U/L (0-33); Albumin Level 4.1 g/dL (3.5-5.2); Alkaline Phosphatase 88 U/L (35-105); Anion Gap 14.3 (5-19); Aspartate Amino Transferase 53 U/L (0-32); Blood Urea Nitrogen 25 mg/dL (8-23); Calcium 9.2 mg/dL (8.5-10.5); Carbon Dioxide 29 mmol/L (22-29); Chloride 99 mmol/L (98-107); Creatinine Clr Calc Pharmacy 32.6046; Glucose 98 mg/dL (65-115); NT Pro B Type Natriuretic Pept 568 pg/mL (0-450); Osmolality Calculated 290 mOsm/kg (285-295); Potassium 4.3 mmol/L (3.5-5.1); Sodium 138 mmol/L (136-145); Total Bilirubin 0.2 mg/dL (0.15-1.2); Total Protein 7.1 g/dL (6.6-8.7)
[2024-08-03] MEDS: iohexol 350 mg/mL 500 mL Btl (per mL) IV (23:26)
[2024-08-03 23:56] VITALS: BP 118/78; PULSE 72; O2SAT 99
[2024-08-04 00:20] VITALS: BP 148/70; PULSE 74; RESP 26; O2SAT 98
[2024-08-04 00:35] VITALS: BP 163/73; PULSE 71; RESP 20; O2SAT 97
[2024-08-04 00:43] LABS: Troponin 5 2HR 32.77 ng/L (0-10); Troponin 5 2HR Delta 9.77 ABS# (0-10)
[2024-08-04 01:08] VITALS: BP 131/83; PULSE 69; RESP 20; O2SAT 96
[2024-08-04 02:08] VITALS: BP 128/81; PULSE 71; RESP 20; O2SAT 96
== END 2024-08-04 02:10 | disposition home or self-care (01) ==
PROVIDERS: Emergency Provider Student in an Organized Health Care Education/Training Program; PCP Electrodiagnostic Medicine
DX: R06.02 Shortness of breath (principal); Z72.0 Tobacco use; J44.9 Chronic obstructive pulmonary disease, unspecified
CPT/HCPCS: 71275; 80053; 82805; 83880; 84484; 85025; 85610; 93005; 94640; 96374; 99285; J2919; J9999

== ENCOUNTER 2024-08-04 16:53 | Emergency (ER) | payer MEDICARE, SELFPAY ==
[2024-08-04 17:02] VITALS: BP 140/85; PULSE 88; RESP 22; TEMP 36.9; O2SAT 96
--- NOTE | 2024-08-04 17:03 | XRR_ITS ---
PROCEDURE INFORMATION: Exam: XR Chest Exam date and time: 08/04/2024 5:08 PM Age: 78 years old Clinical indication: Shortness of breath; Additional info: SOB TECHNIQUE: Imaging protocol: Radiologic exam of the chest. Views: 1 view. COMPARISON: CT angio chest PE protcl [id number] 08/03/2024 11:21 PM FINDINGS: Lungs: Unremarkable. No consolidation. Pleural spaces: Unremarkable. No pleural effusion. No pneumothorax. Heart/Mediastinum: Unremarkable. No cardiomegaly. Bones/joints: Unremarkable. XR/XR chest 1V portable [id number] IMPRESSION: No acute findings.
--- NOTE | 2024-08-04 17:04 | ECG_ITS ---
[facility] Test Date: 2024-08-04 Pat Name: Beverley Gonazles Department: Room: Gender: Female Speech And Hearing Director: : 1945 Requested By: Butch Lujan Order Number: [id number] Eusebio MD: Shad Soriano M.D. Measurements Intervals [place] Rate: 73 P: 150 MT: 163 QRS: 110 QRSD: 90 T: 131 QT: 412 QTc: 455 Interpretive Statements SINUS RHYTHM ARM LEADS REVERSED [INVERTED P AND QRS IN I] Poor R wave progression Compared to ECG 08/03/2024 22:52:55 Myocardial infarct finding no longer present Electronically Signed On 08-04-2024 21:40:56 CDT by Shad Soriano M.D. [email or web address] [id number]
[2024-08-04 17:18] LABS: ABG PCO2 46.4 mmHg (35-45); ABG PH Result 7.38 (7.35-7.45); Arterial Blood Gas Hematocrit 34.9 % (37-47); Base Excess ABG 1.5 mmol/L (-2.0-2.0); Blood Gas Allen Test Pos; Blood Gas Operator Identificat WALCI; Blood Gas Sample Site Radial, left; Blood Gas Sample Type Arterial; Carboxyhemoglobin 0.9 %THgb (0.4-20.1); HCO3 ABG 27.1 mmol/L (22-26); HGB O2 Sat 94.8 % (95-100); Methemoglobin 0.9 % (0.4-1.5); Oxygen Device NC; PO2 ABG 83.2 mmHg (80.0-100.0); Total Hemoglobin 11.4 g/dL (12-16)
--- NOTE | 2024-08-04 17:28 | W.ED.SOB ---
HPI - SOB/Dyspnea General: Chief Complaint: Shortness of Breath/Dyspnea Stated Complaint: SOB Time Seen by Provider: 08/04/24 16:55 History of Present Illness: HPI Narrative: 78-year-old female brought in via EMS. Patient brought in for shortness of breath. Patient has history of known severe and emphysema. She was seen last night and had a thorough evaluation including a negative chest x-ray negative CT. She was treated with breathing treatments and felt better was given Solu-Medrol in the ER and discharged with prednisone. She received an additional DuoNeb and route by EMS today along with breathing treatment earlier today at her primary care provider. She is also taking her prednisone that was prescribed today. Associated symptoms: Deny abdominal pain, chest pain, nausea, palpitations or vomiting Related Data Home Medications ?Medication ?Instructions ?Recorded ?Confirmed Advair Diskus 1 puff PO DAILY 02/26/19 12/05/23 ascorbic acid (vitamin C) 500 mg 500 mg PO DAILY 02/26/19 12/05/23 tablet (Vitamin C) calcium 600 mg (as 1 cap PO DAILY 02/26/19 12/05/23 carbonate)-vitamin D3 12.5 mcg (500 unit) capsule (Calcium with Vit D3) citalopram 10 mg tablet (Celexa) 10 mg PO BEDTIME 02/26/19 12/05/23 clonazepam 0.5 mg tablet 0.5 mg PO BID 02/26/19 12/05/23 fluticasone propionate 50 1 spray intranasal BID 02/26/19 12/05/23 mcg/actuation nasal spray,suspension (Flonase Allergy Relief) gabapentin 300 mg capsule 300 mg PO DAILY 02/26/19 12/05/23 gabapentin 600 mg tablet 600 mg PO BEDTIME 02/26/19 12/05/23 hydrocodone 10 mg-acetaminophen See Rx Instructions .Route .COMPLEX 02/26/19 12/05/23 325 mg tablet ([place]) ipratropium 0.5 mg-albuterol 3 mg 3 ml inhalation Q6H PRN Shortness 02/26/19 12/05/23 (2.5 mg base)/3 mL nebulization Of Breath soln levothyroxine 50 mcg tablet 50 mcg PO DAILY 02/26/19 12/05/23 prednisolone acetate 1 % eye 1 drp ophthalmic (eye) BID 02/26/19 12/05/23 drops,suspension tizanidine 4 mg tablet 4 mg PO DAILY 02/26/19 12/05/23 Previous Rx's ?Medication ?Instructions ?Recorded apixaban 5 mg tablet See Rx Instructions PO .COMPLEX 02/26/19 #60 tabs Allergies Allergy/AdvReac Type Severity Reaction Status Date / Time codeine Allergy ADR-Nausea Verified 12/05/23 11:29 Penicillins Allergy ALGY-Bliste Verified 12/05/23 11:29 r Review of Systems Card: Denies: chest pain or palpitations Resp: Reports: dyspnea and wheezing GI: Denies: abdominal pain, nausea or vomiting PFSH ED PFSH: Medical History COPD (chronic obstructive pulmonary disease) Surgical History History of hip replacement Social History Smoking and tobacco/nicotine status: current some day tobacco/nicotine user Physical Exam Const: COMMON NORMALS: patient oriented x3 GENERAL APPEARANCE: anxious NUTRITIONAL APPEARANCE: underweight Resp: EFFORT & INSPECTION: Yes tachypneic and Yes other (Mild pursed lip breathing) Cardio: COMMON NORMALS: regular rate and regular rhythm RATE: regular rate RHYTHM: regular rhythm Neuro: COMMON NORMALS: patient oriented x3 and no focal motor deficits Psych: COMMON NORMALS: mental status grossly normal and speech normal SPEECH: Yes normal speech Skin: COMMON NORMALS: no rashes or lesions noted GENERAL SKIN EXAM: no rashes or lesions noted Course Vital Signs: Vital signs: Vital Signs Temperature 98.4 F 08/04/24 17:02 Pulse Rate 77 08/04/24 17:55 Respiratory Rate 20 H 08/04/24 17:41 Blood Pressure 131/77 08/04/24 17:55 Pulse Oximetry 100 08/04/24 17:55 Oxygen Delivery Me thod Nasal Cannula 08/04/24 17:55 Oxygen Flow Rate 2 08/04/24 17:55 MDM - SOB/Dyspnea Medical Decision Making Patient's diagnostics as ordered reviewed and interpreted by me. Patient's troponin is not significantly changed from her prior visit last night. Patient is negative chest x-ray. Patient presentation was very much consistent with more of an anxiety reaction versus COPD. Visiting with patient she is currently being weaned off her citalopram and these episodes are becoming more frequent. I had a long discussion with her that the likely due to her having some anxiety reactions and ways to help control that. I also recommend she follow-up with her primary care provider and they look at other options to be able to treat her anxiety. Patient O2 saturations remained in the upper 90s on 2 L. She was stable and discharged home. Lab Data Labs/Radiology: Radiology Impressions Chest X-Ray 08/04/24 17:03 IMPRESSION: No acute findings. Laboratory Results Specimen Type Arterial 08/04/24 17:07 Sample Site Radial, left 08/04/24 17:07 ABG pH 7.38 (7.35-7.45) 08/04/24 17:07 ABG pCO2 46.4 mmHg (35-45) H 08/04/24 17:07 ABG pO2 83.2 mmHg (80.0-100.0) 08/04/24 17:07 ABG HCO3 27.1 mmol/L (22-26) H 08/04/24 17:07 ABG Base Excess 1.5 mmol/L (-2.0-2.0) 08/04/24 17:07 Andrew Test Pos 08/04/24 17:07 Hematocrit 34.9 % (37-47) L 08/04/24 17:07 Hgb O2 Saturation 94.8 % (95-100) L 08/04/24 17:07 Carboxyhemoglobin 0.9 %THgb (0.4-20.1) 08/04/24 17:07 Methemoglobin 0.9 % (0.4-1.5) 08/04/24 17:07 Total Hemoglobin 11.4 g/dL (12-16) L 08/04/24 17:07 O2 Delivery Device Nc 08/04/24 17:07 O2 Liters/Min 2.0 % 08/04/24 17:07 Data Mining Analyst ID [email or web address] 08/04/24 17:07 Troponin T Baseline 27 ng/L (0-10) H 08/04/24 17:19 Troponin T 120 Minute 31.00 ng/L (0-10) H 08/04/24 19:00 Delta Troponin T 4.00 ABS# (0-10) 08/04/24 19:00 All radiology interpretation(s) finalized by discharge Discharge Plan Discharge Patient Disposition: Home Clinical Impression: COPD (chronic obstructive pulmonary disease), Anxiety and depression Condition: Stable Prescriptions: No Action gabapentin 600 mg Tablet 600 mg PO BEDTIME ipratropium-albuterol 0.5 mg-3 mg(2.5 mg base)/3 mL Solution For Nebulization 3 ml INHALATION Q6H PRN (Reason: Shortness Of Breath) tizanidine 4 mg Tablet 4 mg PO DAILY Rx Instructions: pt states that she thinks she takes this once a day Celexa 10 mg Tablet 10 mg PO BEDTIME clonazepam 0.5 mg Tablet 0.5 mg PO BID [place] 10-325 mg Tablet See Rx Instructions .ROUTE .COMPLEX Rx Instructions: 1 - 2 tab orally q4-6h prn prednisolone acetate 1 % Drops,Suspension 1 drp ophthalmic (eye) BID Vitamin C 500 mg Tablet 500 mg PO DAILY levothyroxine 50 mcg Tablet 50 mcg PO DAILY gabapentin 300 mg Capsule 300 mg PO DAILY Flonase Allergy Relief 50 mcg/actuation [place],Suspension 1 spray INTRANASAL BID Calcium 600 with Vitamin D3 600 mg(1,500mg) -500 unit Capsule 1 cap PO DAILY Advair Diskus 1 puff PO DAILY Rx Instructions: PT UNSURE OF STRENGTH-TRYING TO GET FROM MAIL ORDER apixaban 5 mg tablet See Rx Instructions .ROUTE .COMPLEX Qty: 60 0RF Rx Instructions: take 10 mg by mouth twice daily for 7 days; then 5 mg twice daily Discharge Orders: Discharge ED (Routine); Ordered 08/04/24 Ordered By: Butch Lujan Referrals: Sebastian Archer DO [Primary Care Provider, Family Practice] Discharge Diet: Usual diet Discharge Activity: Increase activity as tolerated Patient Instructions: Generalized Anxiety Disorder, COPD - Emphysema, Depression in Older Adults (ED), Opioid Safety, Pain Management Print Language: Urdu Coding Level of Care Code ED Service Girl for Alpa Rudolph
[2024-08-04 17:41] VITALS: PULSE 80; RESP 20; O2SAT 98
[2024-08-04] MEDS: ipratropium-albuterol 3 mL Neb INHALATION (17:45)
[2024-08-04 17:47] VITALS: PULSE 77
[2024-08-04 17:55] VITALS: BP 131/77; PULSE 77; O2SAT 100
[2024-08-04 18:16] LABS: Troponin(5th) Baseline 27 ng/L (0-10)
--- NOTE | 2024-08-04 19:09 | PC.NURSE ---
1007 PT AMBULATED WITH 2L OF 02. PTS O2 LEVELS DROPPED TO 88% WHILE AMBULATING. PT 02 LEVELS RETURNED TO 91% WHILE RESTING.
[2024-08-04 19:59] VITALS: BP 141/68; PULSE 83; O2SAT 96
== END 2024-08-04 19:30 | disposition home or self-care (01) ==
PROVIDERS: Emergency Provider Student in an Organized Health Care Education/Training Program; PCP Electrodiagnostic Medicine
DX: J43.9 Emphysema, unspecified (principal); F41.9 Anxiety disorder, unspecified; F32.A Depression, unspecified; Z79.899 Other long term (current) drug therapy; Z79.890 Hormone replacement therapy; F17.200 Nicotine dependence, unspecified, uncomplicated
CPT/HCPCS: 36415; 36600; 71045; 82805; 84484; 93005; 94640; 99285; J9999